=== PATIENT | female | born 1990 | race Caucasian/White ===

== ENCOUNTER 2024-10-08 13:13 | Emergency (ER) | payer OTHER, SELFPAY ==
[2024-10-08 13:24] VITALS: BP 117/60; PULSE 101; RESP 18; TEMP 36.7; O2SAT 100; BMI 26.4
--- NOTE | 2024-10-08 14:31 | CRLHL7_ITS ---
For Patients: As a result of the Century Cures Act, medical imaging exams and procedure reports are released immediately into your electronic medical record. You may view this report before your referring provider. If you have questions, please contact your health care provider. TECHNIQUE: Multiplanar CT examination of the head was performed without the use of intravenous contrast. INDICATION: Trauma. COMPARISON: None. FINDINGS: No loss of ribera-white differentiation to suggest recent territorial infarct. No intracranial hemorrhage, abnormal extra-axial fluid collection, hydrocephalus or midline shift. The ventricles and cerebral sulci are normal in caliber. The basal cisterns are patent. The paranasal sinuses and mastoid air cells remain clear. The orbits and calvarium are unremarkable. The cerebellar tonsils are normal position. IMPRESSION: No acute intracranial findings. Please note that all CT scans at this facility use dose modulation, iterative reconstruction, and/or weight-based dosing when appropriate to reduce radiation dose to as low as reasonably achievable. Dictated by Sean Gaffney MD @ 10/08/2024 3:37:26 PM (Electronically Signed)
--- NOTE | 2024-10-08 14:31 | CRLHL7_ITS ---
For Patients: As a result of the Cures Act, medical imaging exams and procedure reports are released immediately into your electronic medical record. You may view this report before your referring provider. If you have questions, please contact your health care provider. INDICATION: Fall TECHNIQUE: Three views right hip FINDINGS/IMPRESSION: Normal alignment. No acute fracture or acute osseous abnormalities are visualized. Dictated by Linda Narvaez MD @ 10/08/2024 3:46:42 PM (Electronically Signed)
--- NOTE | 2024-10-08 14:46 | ED.HA ---
HPI - Headache General Date Seen: 10/08/24 Chief Complaint: Headache/Migraine Stated Complaint: vomiting, headache Time Seen by Provider: 10/08/24 13:18 Source: patient Mode of arrival: ambulatory Limitations: no limitations History of Present Illness HPI Narrative: Patient is a 34-year-old female presenting to emergency department for headache and right hip pain. She states the headache started yesterday and she 1st noticed it when she woke up. States there is no headache when she lays down flat but starts developing when she sits up in expect she gets worse when she walks around. She is able to go to her class yesterday but states it kept getting worse throughout the day. Symptoms would then go away when she would lay down. They persisted into today. She initially thought was a migraine and took naproxen which she uses when she does get migraines. Did not improve her symptoms. States this feels different than previous migraines. Describes as a sense of a band around her head. Today she was having associated nausea with it to and vomited twice. Denies any vision changes, chest pain, shortness of breath, weakness, numbness. Does state 3 days ago she was ready to eat at school she fill a little her right hip. She denies hitting her head. Since then she has been having some right hip pain that radiates all way down the right leg. She does states seems to radiating to her mid back also. Denies any saddle anesthesia or urinary retention. No other concerns noted. She has been able ambulate. Related Data Home Medications ?Medication ?Instructions ?Recorded ?Confirmed acetaminophen 500 mg tablet 500 mg PO Q6H PRN 10/08/24 10/08/24 naproxen 220 mg PO 10/08/24 10/08/24 sumax PO 10/08/24 Allergies Allergy/AdvReac Type Severity Reaction Status Date / Time No Known Drug Allergies Allergy Verified 10/08/24 13:34 Review of Systems Status of ROS: Reports: 10 or more systems reviewed and unremarkable except as noted in History and below [facility] Social History Smoking Status: Current some day smoker How often do you have a drink containing alcohol: never AUDIT-C Alcohol total score: 0 Non-prescribed substance use: denies use Exam Narrative: Exam Narrative: Const: Well-nourished, Well-developed, in mild distress Eyes: PERRL, no conjunctival injection, and symmetrical lids HENT: Atraumatic external nose and ears. Moist mucous membranes. Neck: Symmetric, trachea midline, No thyromegaly. CVS: RRR, No murmurs or gallops. Peripheral pulses 2+ and equal in all extremities RESP: Unlabored respiratory effort. Clear to auscultation bilaterally. GI: Nontender/Nondistended, No rebound or guarding. MSK:Extremities w/o deformity, Normal Active ROM Skin: Warm, Dry. Bruising noted to right upper lateral thigh with tenderness noted to the same spots. No midline back tenderness. Neuro: Normal Muscle tone, Cranial nerves 2-12 grossly intact, normal [id number], normal [id number], normal gait, normal strength 5/5 upper lower extremities bilaterally, normal sensation upper and lower extremities bilaterally, normal rapid alternating movements. Psych: Awake, Alert, & Oriented x3. Appropriate mood and affect. Const: Vital Signs, click to edit/add: Vital Signs - 24 hr 10/08/24 13:24 10/08/24 16:03 Temperature 98.1 F 98.6 F Pulse Rate [Right Pulse Oximeter] 101 H 70 Respiratory Rate 18 18 Blood Pressure [Ri ght Upper Arm] 117/60 107/59 L Pulse Oximetry 100 98 Oxygen Delivery Me thod Room Air Room Air Course Vital Signs Vital signs: Initial Vital Signs Temperature 98.1 F 10/08/24 13:24 Temperature Source Temporal Artery Scan 10/08/24 13:24 Pulse Rate 101 H 10/08/24 13:24 Pulse Rhythm Regular 10/08/24 13:24 Pulse Strength 3+ Normal 10/08/24 13:24 Respiratory Rate 18 10/08/24 13:24 Blood Pressure 117/60 10/08/24 13:24 Blood Pressure Mean 79 10/08/24 13:24 Blood Pressure Position Sitting 10/08/24 13:24 Pulse Oximetry 100 10/08/24 13:24 Oxygen Delivery Method Room Air 10/08/24 13:24 Vital Signs Temperature 98.1 F 10/08/24 13:24 Pulse Rate 101 H 10/08/24 13:24 Respiratory Rate 18 10/08/24 13:24 Blood Pressure 117/60 10/08/24 13:24 Pulse Oximetry 100 10/08/24 13:24 Oxygen Delivery Method Room Air 10/08/24 13:24 Temperature 98.6 F 10/08/24 16:03 Pulse Rate 70 10/08/24 16:03 Respiratory Rate 18 10/08/24 16:03 Blood Pressure 107/59 L 10/08/24 16:03 Pulse Oximetry 98 10/08/24 16:03 Oxygen Delivery Method Room Air 10/08/24 16:03 Medications Administered Medications: Discontinued Medications Generic Name Dose Route Start Last Admin Trade Name Susy PRN Reason Stop Dose Admin Diphenhydramine HCl 25 mg 10/08/24 14:31 10/08/24 15:05 Diphenhydramine 50 Mg/Ml Inj IVP 10/08/24 14:32 25 mg ONCE ONE Administration Sodium Chloride 1,000 mls @ 1,000 mls/hr 10/08/24 14:45 10/08/24 16:29 0.9 % Sodium Chloride 1000 Ml IV 10/08/24 15:44 Infused .Q1H DEEPA Infusion Metoclopramide HCl 10 mg 10/08/24 14:31 10/08/24 14:57 Metoclopramide Hcl 5 Mg/Ml Inj IVP 10/08/24 14:32 10 mg ONCE ONE Administration MDM - Headache MDM Narrative Medical decision making narrative: Patient is a 34-year-old female presenting to the emergency department for headache. Her headache could be related to migraines per with positional cause I do have some concern for a tumor or other injury. Will do a CT scan for better evaluation. She is also having some mild right hip pain will do an x-ray to look for any signs of injury. With she is not having any signs of red flag symptoms for cauda equina. Will also try given her a migraine cocktail for headache. After migraine cocktail she still having symptoms of the headache when she sits up. They continue to improve when she lays down. CT scan and x-ray reviewed myself the radiologist shows no acute concerning abnormalities. I am unsure why she is having the severe positional headaches. She looks be very uncomfortable when she tries to sit up. Considering her recent fall though there is a potential for possible dural tear causing spontaneous idiopathic intracranial hypotension that can cause similar symptoms based on a case study in the Annals of emergency medicine. Does recommend MRI with and without contrast. This was performed. Did not show any acute abnormalities. Lumbar puncture can also help with the diagnosis but can also make symptoms worse. Also it does not rule out the diagnosis either. Considering treatment is typically conservative I do not believe is necessary to do a lumbar puncture at this time. If symptoms persist though and patient returned showing lumbar puncture may be indicated and a epidural blood patch could help. May also need MRI of spine. I informed her to have lots of bed rest over the the next few days and to drink caffeine. She is agreeable to this plan. Informed her that if symptoms are not improving by the end of the week to be re-evaluated. I also gave her information to set up primary care in the region. Imaging Data CT scan - head: Attestation: I have reviewed the pertinent imaging results. Radiologist's impression: No acute intracranial findings. Please note that all CT scans at this facility use dose modulation, iterative reconstruction, and/or weight-based dosing when appropriate to reduce radiation dose to as low as reasonably achievable. Dictated by Sean Gaffney MD @ 10/08/2024 3:37:26 PM Hip x-ray : Attestation: I have reviewed the pertinent imaging results. Radiologist's impression: Normal alignment. No acute fracture or acute osseous abnormalities are visualized. Dictated by Linda Narvaez MD @ 10/08/2024 3:46:42 PM MR Brain: Attestation: I have reviewed the pertinent imaging results. Radiologist's impression: 1. Unremarkable MRI brain. No evidence of acute intracranial abnormality. Dictated by Lucia Curtis MD @ 10/08/2024 6:03:30 PM Discharge Plan Discharge Clinical Impression: Headache Qualifiers: Headache type: unspecified Headache chronicity pattern: acute headache Intractability: not intractable Qualified Code(s): R51.9 - Headache, unspecified Patient Disposition: Home, Self-Care Condition: Stable Instructions: Acute Headache (DC) Additional Instructions: I recommend bed rest for the next few few days and drink plenty of caffeine as that can help with your symptoms. If symptoms are not improving by the end of the week return for re-evaluation. If symptoms are getting worse before that return for re-evaluation. Prescriptions: No Action naproxen 220 mg PO sumax PO Patient Comments: medication from [place] acetaminophen 500 mg tablet 500 mg PO Q6H PRN Follow Up/Referrals: Provider,Not a Local [Primary Care Provider] - Stand Alone Forms: [employer] Info Instructions
[2024-10-08] MEDS: METOCLOPRAMIDE HCL 5 MG/ML INJ 10 MG IVP (14:57)
[2024-10-08] MEDS: 0.9 % SODIUM CHLORIDE 1000 ml 1,000 ML IV (14:58)
[2024-10-08] MEDS: diphenhydrAMINE 50 MG/ML inj 25 MG IVP (15:05)
[2024-10-08 16:03] VITALS: BP 107/59; PULSE 70; RESP 18; TEMP 37; O2SAT 98
--- NOTE | 2024-10-08 16:26 | CRLHL7_ITS ---
For Patients: As a result of the Century Cures Act, medical imaging exams and procedure reports are released immediately into your electronic medical record. You may view this report before your referring provider. If you have questions, please contact your health care provider. Indication: Worsening headache when sitting up, recent fall Technique: Multiplanar, multisequence MRI of the brain obtained without and with contrast. A total of 15 mL of Dotarem IV contrast was administered. Comparison: Same-day CT head Findings: The ventricles and cortical The ventricles and cortical sulci are age-appropriate in size and configuration. No midline shift or mass effect. No acute intracranial hemorrhage or abnormal extra-axial fluid collection. No evidence of acute/subacute ischemia. White matter signal appears within normal limits. No abnormal enhancement identified. Midline structures are unremarkable. The major expected intracranial flow voids are visualized. Included bone marrow signal is unremarkable. No suspicious findings in the regional soft tissues. Normal signal throughout the paranasal sinuses. Trace nonspecific fluid at the right mastoid tip. Visualized orbits are unremarkable. Impression: 1. Unremarkable MRI brain. No evidence of acute intracranial abnormality. Dictated by Lucia Curtis MD @ 10/08/2024 6:03:30 PM (Electronically Signed)
== END 2024-10-08 18:56 | disposition home or self-care (01) ==
PROVIDERS: Emergency Provider Student in an Organized Health Care Education/Training Program
DX: R51.9 Headache, unspecified (principal)
CPT/HCPCS: 70450; 70553; 73502; 96361; 96374; 96375; 99283; 99284; 99285; A9575; J1200; J2765; J7030

== ENCOUNTER 2024-10-18 17:43 | Emergency (ER) | payer OTHER, SELFPAY ==
[2024-10-18 17:47] VITALS: BP 114/74; PULSE 59; RESP 16; TEMP 36.3; O2SAT 97; BMI 26.4
[2024-10-18] MEDS: KETOROLAC 15 MG/ML inj IVP (18:17)
[2024-10-18] MEDS: METOCLOPRAMIDE HCL 5 MG/ML INJ 10 MG IVP (18:18)
[2024-10-18] MEDS: diphenhydrAMINE 50 MG/ML inj 25 MG IVP (18:18)
--- NOTE | 2024-10-18 18:23 | ED_ITS ---
HPI - Headache General Date Seen: 10/18/24 Chief Complaint: Headache/Migraine Stated Complaint: intense headache Time Seen by Provider: 10/18/24 17:44 Source: patient Mode of arrival: ambulatory Limitations: no limitations History of Present Illness HPI Narrative: Patient is a 34-year-old female presenting to emergency department for a headache. She was seen he by myself 10 days ago for headache. That at that time headache was positional and much worse whenever she stood up. Extensive imaging was done showing no acute abnormalities. At that time she was discharged home and was told to stick to bedrest for the next few days. She states by the her headache was much better and she was feeling good. The next day she started developing a another headache that was constant but not nearly as bad. She states this headache has been persistent. She states this feels like her previous migraines. States she does feel like she sees some dots in her vision. She took her home sumatriptan on the without any improvement in her symptoms. States she only had 1 dose left from when she lived in [place]. Has also been taking naproxen and Tylenol without much improvement in her symptoms. This headache is not positional. Denies fevers, chills, chest pain, shortness of breath, weakness, numbness, abdominal pain. Does states she has some nausea. Related Data Home Medications ?Medication ?Instructions ?Recorded ?Confirmed acetaminophen 500 mg tablet 500 mg PO Q6H PRN 10/08/24 10/08/24 naproxen 220 mg PO 10/08/24 10/08/24 sumax PO 10/08/24 Previous Rx's ?Medication ?Instructions ?Recorded sumatriptan 10 mg/actuation nasal 10 mg intranasal Q2H PRN migraine 10/18/24 spray headache #6 ea Allergies Allergy/AdvReac Type Severity Reaction Status Date / Time No Known Drug Allergies Allergy Verified 10/08/24 13:34 Review of Systems Status of ROS: Reports: 10 or more systems reviewed and unremarkable except as noted in History and below PFSH PFS Social History Smoking Status: Current some day smoker How often do you have a drink containing alcohol: never AUDIT-C Alcohol total score: 0 Non-prescribed substance use: denies use Exam Narrative: Exam Narrative: Const: Well-nourished, Well-developed, in mild distress Eyes: PERRL, no conjunctival injection, and symmetrical lids HENT: Atraumatic external nose and ears. Moist mucous membranes. Neck: Symmetric, trachea midline, No thyromegaly. CVS: RRR, No murmurs or gallops. Peripheral pulses 2+ and equal in all extremities RESP: Unlabored respiratory effort. Clear to auscultation bilaterally. GI: Nontender/Nondistended, No rebound or guarding. MSK:Extremities w/o deformity, Normal Active ROM Skin: Warm, Dry. No rashes or lesions. Neuro: Normal Muscle tone, No focal neurological deficits. Psych: Awake, Alert, & Oriented x3. Appropriate mood and affect. Const: Vital Signs, click to edit/add: Vital Signs - 24 hr 10/18/24 17:47 10/18/24 19:25 Temperature 97.3 F L Pulse Rate [Pulse Oximeter] 59 L 78 Respiratory Rate 16 18 Blood Pressure [Ri ght Upper Arm] 114/74 127/77 Pulse Oximetry 97 98 Oxygen Delivery Me thod Room Air Room Air Course Vital Signs Vital signs: Initial Vital Signs Temperature 97.3 F L 10/18/24 17:47 Temperature Source Temporal Artery Scan 10/18/24 17:47 Pulse Rate 59 L 10/18/24 17:47 Respiratory Rate 16 10/18/24 17:47 Blood Pressure 114/74 10/18/24 17:47 Blood Pressure Mean 87 10/18/24 17:47 Blood Pressure Position Sitting 10/18/24 17:47 Pulse Oximetry 97 10/18/24 17:47 Oxygen Delivery Method Room Air 10/18/24 17:47 Vital Signs Temperature 97.3 F L 10/18/24 17:47 Pulse Rate 59 L 10/18/24 17:47 Respiratory Rate 16 10/18/24 17:47 Blood Pressure 114/74 10/18/24 17:47 Pulse Oximetry 97 10/18/24 17:47 Oxygen Delivery Method Room Air 10/18/24 17:47 Temperature 97.3 F L 10/18/24 17:47 Pulse Rate 78 10/18/24 19:25 Respiratory Rate 18 10/18/24 19:25 Blood Pressure 127/77 10/18/24 19:25 Pulse Oximetry 98 10/18/24 19:25 Oxygen Delivery Method Room Air 10/18/24 19:25 Medications Administered Medications: Discontinued Medications Generic Name Dose Route Start Last Admin Trade Name Susy PRN Reason Stop Dose Admin Diphenhydramine HCl 25 mg 10/18/24 18:03 10/18/24 18:18 Diphenhydramine 50 Mg/Ml Inj IVP 10/18/24 18:04 25 mg ONCE ONE Administration Sodium Chloride 1,000 mls @ 1,000 mls/hr 10/18/24 18:15 10/18/24 18:28 0.9 % Sodium Chloride 1000 Ml IV 10/18/24 19:14 1,000 mls/hr .Q1H DEEPA Administration Ketorolac Tromethamine 15 mg 10/18/24 18:03 10/18/24 18:17 Ketorolac 15 Mg/Ml Inj IVP 10/18/24 18:04 15 mg ONCE ONE Administration Metoclopramide HCl 10 mg 10/18/24 18:03 10/18/24 18:18 Metoclopramide Hcl 5 Mg/Ml Inj IVP 10/18/24 18:04 10 mg ONCE ONE Administration MDM - Headache MDM Narrative Medical decision making narrative: Patient is a 34-year-old female presenting to emergency department for headache. She was seen previously for positional headache but that has since resolved. Her headache now feels more like a migraine she states. Considering the extensive imaging done previously I do not believe repeat imaging is necessary at this time. She describes a similar to her previous migraines. I will give her a migraine cocktail which includes Reglan, Benadryl, L of normal saline, Toradol. She is feeling much better after this. States the headache is now 2/10 in feels comfortable with discharge. I will give her a short prescription of sumatriptan, as she has had a prescription for this before but cannot get 1 now she does not have a primary or neurologist in the country, to use as needed for her headache until she can follow up with outpatient. She is agreeable to this plan I will give Discharge Plan Discharge Clinical Impression: Migraine Qualifiers: Migraine type: unspecified Status migrainosus presence: without status migrainosus Intractability: not intractable Qualified Code(s): G43.909 - Migraine, unspecified, not intractable, without status migrainosus Patient Disposition: Home, Self-Care Condition: Stable Instructions: Migraine Headache (ED) Additional Instructions: Use the sumatriptan as needed for headache. Make sure to set up primary care with with the number we provided. He can try contacting [facility] at [phone] to see if you can set up the appointment without a referral Prescriptions: New sumatriptan 10 mg/actuation spray,non-aerosol 10 mg intranasal Q2H PRN (Reason: migraine headache) Qty: 6 0RF Rx Instructions: administer into one nostril as a single dose; if 2nd dose needed,administer into other nostril after at least 2 hrs, NTE 2 doses (40 mg) per episode No Action naproxen 220 mg PO sumax PO Patient Comments: medication from [place] acetaminophen 500 mg tablet 500 mg PO Q6H PRN Follow Up/Referrals: Provider,Not a Local [Primary Care Provider] - Stand Alone Forms: [employer] Info Instructions
[2024-10-18] MEDS: 0.9 % SODIUM CHLORIDE 1000 ml 1,000 ML IV (18:28)
[2024-10-18 19:25] VITALS: BP 127/77; PULSE 78; RESP 18; O2SAT 98
--- NOTE | 2024-10-19 16:20 | ED.NURSE ---
Patient unable to afford intanasal sumatripan, per [facility] Pharmacist. Dr. Sims wrote for Imitrex 25 mg PO every 2 hours for 2 doses daily as need for migraines fo a quatity of ten. This was phoned into [facility]. Patient contacted by phone.
== END 2024-10-18 19:47 | disposition home or self-care (01) ==
PROVIDERS: Emergency Provider Student in an Organized Health Care Education/Training Program
DX: G43.909 Migraine, unspecified, not intractable, without status migrainosus (principal)
CPT/HCPCS: 96374; 96375; 99283; J1200; J1885; J2765; J7030